=== PATIENT | female | born 1985 | race Caucasian/White ===

== ENCOUNTER 2016-07-12 16:28 | Emergency (ER) | payer OTHER ==
[~2016-07-12] VITALS: Ht 167.6 cm; Wt 84.5 kg
[~2016-07-12 16:28] MED LIST: FOLI1TAB7 PO; PRENTAB26 PO
[2016-07-12 16:42] VITALS: TEMP 37; Ht 167.6 cm; Wt 84.5 kg
[2016-07-12] MEDS ORDERED: SODIUM CHLORIDE 0.9% 1000ML 1,000 ML IV STA (19:29)
[2016-07-12 19:46] LABS: BASO % 0.6 %; BASO ABS # 0.05 K/uL (0-0.2); COMPLETE YES; EOS % 2.1 %; HEMATOCRIT 38.4 % (37-47); IG% 0.1 %; LYMPH % 33.3 %; LYMPH ABS # 2.79 K/uL (1.2-3.4); MEAN CELL VOLUME 82.9 fL (80-100); MEAN CORPUSCULAR HEMOGLOBIN 29.6 pg (25-34); MEAN CORPUSCULAR HGB CONC 35.7 g/dl (32-36); MEAN PLATELET VOLUME 9.3 fL (7.4-10.4); MONO % 6.1 %; NEUT % 57.8 %; PLATELET COUNT 307 K/uL (130-400); RED BLOOD COUNT 4.63 M/uL (4.2-5.4); WHITE BLOOD COUNT 8.39 K/uL (4.8-10.8)
[2016-07-12 19:48] LABS: ISTAT CREATININE 0.6 mg/dl (0.6-1.3); ISTAT HEMOGLOBIN 13.3 g/dl (12.0-16.0); ISTAT IONIZED CALCIUM 1.22 mmol/l (1.12-1.32)
--- NOTE | 2016-07-12 19:56 | DIAGNOSTIC IMAGING REPORT ---
CHEST ONE VIEW PORTABLE CLINICAL HISTORY: chest pain dyspnea COMPARISON STUDY: 05/14/2009 FINDINGS: The bones soft tissues and hemidiaphragms are normal. The cardiomediastinal silhouette is normal. The lungs are clear. The pulmonary vasculature is normal. IMPRESSION: Negative chest. Electronically signed by: Paulino Ambrose M.D. 07/12/2016 7:54 PM Dictated Date/Time: 07/12/2016 7:54 PM
[2016-07-12 20:02] LABS: ALT/SGPT 31 U/L (12-78); BLOOD UREA NITROGEN 13 mg/dl (7-18); BUN/CREATININE RATIO 20.5 (10-20); CALCIUM 8.7 mg/dl (8.5-10.1); CARBON DIOXIDE 25 mmol/L (21-32); CHLORIDE 106 mmol/L (98-107); CREATININE 0.65 mg/dl (0.60-1.20); GLUCOSE 77 mg/dl (70-99); POTASSIUM 3.4 mmol/L (3.5-5.1); SODIUM 141 mmol/L (136-145)
[2016-07-12 20:07] LABS: ALKALINE PHOSPHATASE 70 U/L (45-117); AST/SGOT 18 U/L (15-37)
[2016-07-12] MEDS ORDERED: GI COCKTAIL PO STA (20:07)
[2016-07-12] MEDS ORDERED: KETOROLAC TROMETHAMINE 30 MG/ML VIAL IV STA (20:07)
[2016-07-12] MEDS ORDERED: RANITIDINE HCL SYRUP 150 MG/10 ML UDC PO ONE (20:15)
[2016-07-12] MEDS ORDERED: LIDOCAINE HCL 2% VISC SOLN 20 ML UDC ONE (20:23)
[2016-07-12] MEDS ORDERED: ALUMINUM/MAGNESIUM SUSP 30 ML UDC ONE (20:23)
[2016-07-12] MEDS ORDERED: SYN112 PO (20:47)
[2016-07-12] MEDS ORDERED: BCPILLS PO (20:47)
[2016-07-12 21:02] LABS: URINE APPEARANCE CLEAR (CLEAR); URINE BILIRUBIN NEG (NEG); URINE COLOR YELLOW; URINE NITRITE NEG (NEG); URINE PH 6.5 (4.5-7.5); URINE SPECIFIC GRAVITY 1.023 (1.000-1.030); UROBILINOGEN NEG (NEG); ZZUR CULT IF INDIC CLEAN CATCH NO
[2016-07-12 21:18] LABS: MANUAL MICROSCOPIC REQUIRED? NO; REVIEW REQ? NO
--- NOTE | 2016-07-12 21:25 | DIAGNOSTIC IMAGING REPORT ---
ABDOMEN AND PELVIS CT WITH IV CONTRAST CT DOSE: 450.03 mGy.cm HISTORY: Pain RLQ abdominal pain TECHNIQUE: Multiaxial CT images of the abdomen and pelvis were performed following the use of intravenous contrast. COMPARISON STUDY: 05/14/2009 FINDINGS: Lung bases are clear. Liver spleen and pancreas are unremarkable. Gallbladder slightly contracted. Kidneys enhance uniformly. No evidence for hydronephrosis. Bowel pattern is considered nonobstructive. Appendix is identified and is unremarkable. 1.5 cm collapsing right ovarian cyst. Small amount of free fluid within the pelvic cul-de-sac. Bladder is midline. IMPRESSION: 1. Nonobstructive bowel pattern. 2. 1.5 cm collapsing right ovarian cyst with a small amount of free fluid within the pelvic cul-de-sac. 3. Normal appendix. Electronically signed by: Paulino Ambrose M.D. 07/12/2016 9:24 PM Dictated Date/Time: 07/12/2016 9:22 PM
[2016-07-12] MEDS ORDERED: OPTIRAY 320 IV PRN (21:30)
[2016-07-12 23:21] VITALS: BP 118/71; O2SAT 98
[2016-07-12 23:25] VITALS: PULSE 72
--- NOTE | 2016-07-12 23:39 | EMERGENCY ROOM VISIT NOTE ---
History Report prepared by Lenny: Traci Mott Under the Supervision of: Dr. Hugo Black M.D. First contact with patient: 19:19 Chief Complaint: PAIN (GENERALIZED) Stated Complaint: CHEST PAIN,ABD CRAMPS,NAUSEA History of Present Illness The patient is a 31 year old female who presents to the Emergency Room with complaints of worsening generalized pain that started a couple weeks ago. The pain started out as diffuse pain in her abdomen, but yesterday it became centralized. She also developed chest pain yesterday that is intermittently sharp. The pain radiates into the right side of her neck. The patient states that she got home from a 5 hour car trip yesterday and the chest pain started after. The patient adds that she has been working with OB-OFFICE MANAGER to figure our why her menstrual periods have been irregular and why she is experiencing abdominal pain. However, she has not had any imaging of her abdomen done. The patient called her PCP earlier today and they recommended coming into the ED for further evaluation. The patient is on control pills. She denies any personal or family history of blood clots. The patient's adds that the patient felt a mass in the upper right quadrant of her abdomen the other day. She denies any recent upper respiratory illnesses. Source of History: patient Onset: a couple weeks ago Position: other (generalized) Quality: other (generalized pain) Timing: worsening Associated Symptoms: + abdominal pain, + chest pain, + neck pain Note: no recent upper respiratory illness Review of Systems See HPI for pertinent positives & negatives. A total of 10 systems reviewed and were otherwise negative. Past Medical & Surgical Medical Problems: (1) Mitral valve prolapse Family History Heart disease Social History Smoking Status: Never Smoker Marital Status: in relationship Housing Status: lives with significant other Occupation Status: employed Current/Historical Medications Scheduled Control Pills ( Control Pills), 1 TAB PO DAILY Levothyroxine Sodium (Synthroid), 1 TAB PO QPM Allergies Coded Allergies: Diphenhydramine (Verified Allergy, Intermediate, HIVES, 07/12/16) Physical Exam Vital Signs Date Time Temp Pulse Resp B/P Pulse Ox O2 Delivery O2 Flow Rate FiO2 07/12/16 23:25 72 07/12/16 23:21 68 20 118/71 98 Room Air 07/12/16 21:44 63 16 120/65 97 Room Air 07/12/16 19:30 71 16 140/70 100 Room Air 07/12/16 19:24 83 07/12/16 16:42 37.0 74 18 Room Air Physical Exam GENERAL: Patient is anxious appearing and in mild distress. HEENT: No acute trauma, normocephalic atraumatic, mucous membranes moist, no nasal congestion, no scleral icterus. NECK: No stridor, no adenopathy, no meningismus, trachea is midline. LUNGS: No dyspnea. Clear to auscultation and equal bilaterally. No wheeze, no rhonchi. HEART: Regular rate and rhythm. No murmurs, rubs, gallops appreciated. ABDOMEN: Soft, mild right lower quadrant tenderness to palpation, bowel sounds positive, no masses appreciated, no peritonitis. BACK: No midline tenderness, no CVA tenderness EXTREMITIES: Normal motion all extremities, no cyanosis, no edema. NEUROLOGIC: Alert and oriented, no acute motor or sensory deficits, no focal weakness, cranial nerves grossly intact. SKIN: No rash, no jaundice, no diaphoresis. Medical Decision & Procedures ER Provider Diagnostic Interpretation: Radiology results and stated below per my review and radiologist interpretation: CHEST ONE VIEW PORTABLE IMPRESSION: Negative chest. Electronically signed by: Paulino Ambrose M.D. 07/12/2016 7:54 PM Dictated Date/Time: 07/12/2016 7:54 PM ABDOMEN AND PELVIS CT WITH IV CONTRAST IMPRESSION: 1. Nonobstructive bowel pattern. 2. 1.5 cm collapsing right ovarian cyst with a small amount of free fluid within the pelvic cul-de-sac. 3. Normal appendix. Electronically signed by: Paulino Ambrose M.D. 07/12/2016 9:24 PM Dictated Date/Time: 07/12/2016 9:22 PM US PELVIC/ENDOVAG: STATRAD IMPRESSION: The uterus is unremarkable. There is a 2.5 cm x 1.3 cm x 1.8 cm complex lesion in the right ovary. May represent a hemorrhagic cyst. Consider follow-up in 4-6 weeks to ensure resolution. Several follicles are seen at the periphery of the ovaries. This may represent a string of pearls appearance, suggesting possibility of a cystic ovarian syndrome. Correlate clinically. Otherwise, no additional suspicious masses seen. If there is clinical concern for occult ectopic , correlate with beta hCG. Flow is seen in both ovaries. Trace free fluid in the right adnexal and superior uterine regions. US VENOUS BILATERAL LOWER EXTREMITIES: STATRAD IMPRESSION: No sonographic evidence of DVT in either lower extremity. Laboratory Results 07/12/16 19:30 Red Blood Count 4.63, Mean Corpuscular Volume 82.9, Mean Corpuscular Hemoglobin 29.6, Mean Corpuscular Hemoglobin Concent 35.7, Mean Platelet Volume 9.3, Neutrophils (%) (Auto) 57.8, Lymphocytes (%) (Auto) 33.3, Monocytes (%) (Auto) 6.1, Eosinophils (%) (Auto) 2.1, Basophils (%) (Auto) 0.6, Neutrophils # (Auto) 4.85, Lymphocytes # (Auto) 2.79, Monocytes # (Auto) 0.51, Eosinophils # (Auto) 0.18, Basophils # (Auto) 0.05 07/12/16 19:30 Test 07/12/16 19:30 07/12/16 19:34 07/12/16 21:55 White Blood Count 8.39 K/uL (4.8-10.8) Red Blood Count 4.63 M/uL (4.2-5.4) Hemoglobin 13.7 g/dL (12.0-16.0) Hematocrit 38.4 % (37-47) Mean Corpuscular Volume 82.9 fL (80-100) Mean Corpuscular Hemoglobin 29.6 pg (25-34) Mean Corpuscular Hemoglobin Concent 35.7 g/dl (32-36) Platelet Count 307 K/uL (130-400) Mean Platelet Volume 9.3 fL (7.4-10.4) Neutrophils (%) (Auto) 57.8 % Lymphocytes (%) (Auto) 33.3 % Monocytes (%) (Auto) 6.1 % Eosinophils (%) (Auto) 2.1 % Basophils (%) (Auto) 0.6 % Neutrophils # (Auto) 4.85 K/uL (1.4-6.5) Lymphocytes # (Auto) 2.79 K/uL (1.2-3.4) Monocytes # (Auto) 0.51 K/uL (0.11-0.59) Eosinophils # (Auto) 0.18 K/uL (0-0.5) Basophils # (Auto) 0.05 K/uL (0-0.2) RDW Standard Deviation 40.5 fL (36.4-46.3) RDW Coefficient of Variation 13.4 % (11.5-14.5) Immature Granulocyte % (Auto) 0.1 % Immature Granulocyte # (Auto) 0.01 K/uL (0.00-0.02) Urine Color YELLOW Urine Appearance CLEAR (CLEAR) Urine pH 6.5 (4.5-7.5) Urine Specific [place] 1.023 (1.000-1.030) Urine Protein NEG (NEG) Urine Glucose (UA) NEG (NEG) Urine Ketones NEG (NEG) Urine Occult Blood NEG (NEG) Urine Nitrite NEG (NEG) Urine Bilirubin NEG (NEG) Urine Urobilinogen NEG (NEG) Urine Leukocyte Esterase NEG (NEG) Urine WBC (Auto) 1-5 /hpf (0-5) Urine RBC (Auto) 0-4 /hpf (0-4) Urine Hyaline Casts (Auto) 1-5 /lpf (0-5) Urine Epithelial Cells (Auto) 10-20 /lpf (0-5) Urine Bacteria (Auto) NEG (NEG) Urine Test NEG (NEG) Est Creatinine Clear Calc Drug Dose 136.0 ml/min Estimated GFR () 136.2 Estimated GFR (Non- 117.5 BUN/Creatinine Ratio 20.5 (10-20) Calcium Level 8.7 mg/dl (8.5-10.1) Total Bilirubin 0.4 mg/dl (0.2-1) Direct Bilirubin 0.1 mg/dl (0-0.2) Aspartate Amino Transf (AST/SGOT) 18 U/L (15-37) Alanine Aminotransferase (ALT/SGPT) 31 U/L (12-78) Alkaline Phosphatase 70 U/L (45-117) Troponin I < 0.015 ng/ml (0-0.045) Total Protein 7.5 gm/dl (6.4-8.2) Albumin 3.7 gm/dl (3.4-5.0) Lipase 177 U/L (73-393) Bedside Hemoglobin 13.3 g/dl (12.0-16.0) Bedside Hematocrit 39 % (37-47) Bedside Sodium 141 mEq/L (135-144) Bedside Potassium 3.4 mEq/L (3.3-5.0) Bedside Chloride 102 mEq/L (101-112) Bedside Total CO2 24 mEq/l (24-31) Anion Gap 20.0 mmol/L (16-25) Bedside Blood Urea Nitrogen 13 mg/dl (7-18) Bedside Creatinine 0.6 mg/dl (0.6-1.3) Bedside Glucose (other) 83 mg/dl (70-99) Bedside Ionized Calcium (Henrry) 1.22 mmol/l (1.12-1.32) Bedside D-Dimer 387 ng/mlFEU (0-450) Bedside Troponin I 0.000 ng/ml (0-0.045) Laboratory results as reviewed by me. Medications Administered Medications (Trade) Dose Ordered Sig/Julia Route Start Time Stop Time Status Last Admin Dose Admin Sodium Chloride (Nss 1000ml) 1,000 ml @ 999 mls/hr Q1H1M STAT IV 07/12/16 19:29 07/12/16 20:29 DC 07/12/16 19:29 999 MLS/HR Ketorolac Tromethamine (Toradol Inj) 30 mg NOW STAT IV 07/12/16 20:07 07/12/16 20:09 DC 07/12/16 20:29 30 MG Ranitidine HCl (zANTac SYRUP) 150 mg NOW ONCE PO 07/12/16 20:15 07/12/16 20:16 DC 07/12/16 20:29 150 MG Al Hydroxide/Mg Hydroxide (Maalox Susp) 30 ml STK-MED ONCE .ROUTE 07/12/16 20:23 07/12/16 20:27 DC 07/12/16 20:29 30 ML Lidocaine HCl (Viscous Lidocaine 2% Soln) 20 ml STK-MED ONCE .ROUTE 07/12/16 20:23 07/12/16 20:27 DC 07/12/16 20:30 20 ML Oxycodone/ Acetaminophen (Percocet 5/ 325MG Home Pack) 2 homepack UD ONCE PO 07/12/16 23:45 07/12/16 23:46 DC 07/12/16 23:52 1 HOMEPACK Oxycodone/ Acetaminophen (Percocet 5/ 325MG Home Pack) 2 homepack UD ONCE PO 07/12/16 23:45 07/12/16 23:46 DC 07/12/16 23:52 1 HOMEPACK ECG Indication: chest pain Rate (beats per minute): 69 Rhythm: normal sinus Findings: RBBB, no acute ischemic change, no ectopy Comparison ECG Date: 08/03/2010 Change: no significant change Change: Repeat EKG on 07/12/2016 showed normal sinus rhythm, rate of 65, RBBB, no ectopy , no acute ischemic changes, and when compared to the first EKG performed on the same date there were no significant changes. ED Course 1922: The patient was evaluated in room B9. A complete history and physical exam was performed. 1928: Ordered Sodium Chloride 1000 ml @ 999 mls/hr IV 2006: Ordered Toradol Inj 30 mg IV 2014: Ordered Zantac Syrup 150 mg PO 2022: Ordered Lidocaine HCl 20 ml PO, Maalox Susp 20 ml PO 2099: I reassessed the patient. She is waiting to go over for her CT. 2107: I updated the patient that she should be going over to CT soon. 2134: I reevaluated and updated the patient. She informed me that she is experiencing another episode of chest discomfort. We are going to get a repeat EKG. 7: I went to reassess the patient, but she was over at ultrasound, so I updated her family. 2327: Reevaluated the patient. Discussed results and discharge instructions: she verbalized understanding and agreement. The patient is ready for discharge. 2345: Ordered Oxycodone/Acetaminophen 2 homepack PO, Oxycodone/Acetaminophen 2 homepack PO Medical Decision Differential: Cardiac Ischemia (STEMI, NSTEMI, Unstable Angina, etc), Aortic Dissection, Arrhythmia, Pulmonary Embolism, Pneumonia, Pneumothorax, MSK, Infectious, Pericarditis/Myocarditis, Esophageal Rupture, Gastrointestinal, Appendicitis, , MSK, Diverticulitis, UTI, Renal Colic, Bowel Obstruction, Aortic Pathology, amongst other pathologies entertained. 31 yr old female arrives with multiple complaints though primarily concern being right lower quadrant discomfort and chest pain. RLQ Pain: Ongoing for some time and already evaluated by Facilities Engineering Manager for this. No previous imaging thus felt CT reasonable. Labs look good, ua clear and CT with evidence of ruptured right ovarian cyst. Small amount free fluid. I do not feel this is infectious. HgB OK and vitals look good. May be hemorrhagic and US consistent with this possibility. Not requiring IV narcotics and seems reasonable doing NSAIDs for next few days along with anti-acid. Will give some Percocet for pain at home as she is driving. Discussed symptoms requiring return. She will need to follow up with hand blocker which I stressed to here. Chest Pain: Non-specific description and waxes/wanes even in ED. CXR without evidence dissection nor acute findings. EKG x two with RBBB which is similar to old EKG she has had done. She has had 2 negative troponins both well over 6 hours from symptom onset. Did recently travel and is on control thus dimer done as no other acute risk factors. With normal vitals, wnl Dimer I do not feel this is PE (furthermore bilateral US legs negative for any DVT). No evidence infectious. May all just be MSK though esophageal also a possibility. Weight Gain: Admits increased weight over last few weeks. No clear electrolyte abnormalities. I have advised she follow up with her PCP/endo regarding making sure she is on right levoxyl dosing. US bilateral lower legs without dvt. Impression Primary Impression: Ruptured ovarian cyst Additional Impression: Chest pain Scribe Attestation The scribe's documentation has been prepared under my direction and personally reviewed by me in its entirety. I confirm that the note above accurately reflects all work, treatment, procedures, and medical decision making performed by me. Departure Information Dispostion Home / Self-Care Referrals Satnam Jon M.D. (PCP) Forms HOME CARE DOCUMENTATION FORM, IMPORTANT VISIT INFORMATION, WORK / SCHOOL INSTRUCTIONS Patient Instructions Cyst Ruptured Ovarian Tx, ED Chest Pain Atypical Unkn Cause, [facility] Additional Instructions It is important to follow up with your primary care provider and automobile insurance claim examiner for further evaluation and treatment. Return if worsening symptoms or other concerns. Use Anti-Acid (Pepcid, Zantac, Prilosec, Etc) twice daily while taking Ibuprofen. You have received a narcotic pain medication. These medications may cause drowsiness and should not be used with other sedative medications. Do not drive , drink alcohol, perform dangerous activities, nor make important decisions after taking these medications. USP use or inappropriate use may lead to addiction. Problem Qualifiers Additional Impression: Chest pain Chest pain type: intercostal pain Qualified Codes: R07.82 - Intercostal pain
[2016-07-12] MEDS ORDERED: PERCOCET HOME PACK PO ONE ×2 (23:45)
--- NOTE | 2016-07-13 06:30 | DIAGNOSTIC IMAGING REPORT ---
ULTRASOUND VENOUS DOPPLER LWR EXT BILA CLINICAL HISTORY: Bilateral leg swelling. Shortness of breath. Long car trip. COMPARISON STUDY: No previous studies for comparison. FINDINGS: Real-time and color flow Doppler imaging were performed. Flow was seen within the femoral, popliteal and calf veins with no intraluminal thrombus demonstrated. The saphenous vein is patent. IMPRESSION: No evidence of lower extremity DVT. Electronically signed by: James Sin M.D. 07/13/2016 6:28 AM Dictated Date/Time: 07/13/2016 6:28 AM
--- NOTE | 2016-07-13 06:42 | DIAGNOSTIC IMAGING REPORT ---
PELVIC ULTRASOUND CLINICAL HISTORY: Right pelvic pain. Ruptured cyst on CT. COMPARISON STUDY: CT of the abdomen and pelvis July 12, 2016. TECHNIQUE: Transabdominal and transvaginal sonography of the pelvis was performed. FINDINGS: The uterus measures 8.2 x 4.3 x 5.2 cm. The endometrium measures 4 mm in thickness. The right ovary measures 5 x 2.3 x 3 cm. There is a 2.5 cm hypoechoic right ovarian lesion that likely corresponds to the finding on CT. There is color flow within each ovary. The left ovary measures 2.7 x 1.9 x 4 cm. Numerous peripherally located follicles are noted. Trace fluid is noted. IMPRESSION: 1. No sonographic evidence of ovarian torsion. 2. 2.5 cm hypoechoic right ovarian lesion that corresponds to the lesion shown on prior CT. This may reflect a hemorrhagic/corpus luteal cyst. 3. Numerous small peripherally located follicles. This can be seen in normal patients although can also be seen in setting of polycystic ovarian syndrome. Electronically signed by: Teodoro Mata M.D. 07/13/2016 6:40 AM Dictated Date/Time: 07/13/2016 6:38 AM
== END 2016-07-12 23:50 | disposition home or self-care (01) ==
LOC: C.EDB 16:29
DX: N83.201 Unspecified ovarian cyst, right side (principal); R07.9 Chest pain, unspecified; I45.10 Unspecified right bundle-branch block; I34.1 Nonrheumatic mitral (valve) prolapse; Z79.899 Other long term (current) drug therapy; Z88.8 Allergy status to other drugs, medicaments and biological substances

== ENCOUNTER → 2017-03-14 | Outpatient (CLI) | payer OTHER ==
[~2017-03-14] MED LIST changes: +BCPILLS PO; -FOLI1TAB7 PO; -PRENTAB26 PO; +SYN112 PO
--- NOTE | 2017-03-14 11:51 | DIAGNOSTIC IMAGING REPORT ---
HYSTEROSALPINGOGRAM CLINICAL HISTORY: Infertility testing. COMPARISON STUDY: Pelvic ultrasound dated 07/12/2016. FINDINGS: Fluoroscopic assistance was provided to the visiting housekeeper in performing a hysterosalpingogram. The uterine cavity distends normally. No filling defects are identified. There is normal filling of the fallopian tubes, with free spillage of contrast into pelvis bilaterally. Fluoroscopy time: 0.3 minutes. IMPRESSION: Unremarkable hysterosalpingogram. The fallopian tubes are patent bilaterally. Electronically signed by: Spencer Carrero M.D. 03/14/2017 11:50 AM Dictated Date/Time: 03/14/2017 11:49 AM
== END | disposition home or self-care (01) ==
LOC: C.RAD 10:35
PROVIDERS: ATTEND Obstetrics & Gynecology
DX: N97.9 Female infertility, unspecified (principal)